=== PATIENT | female | born 1960 | race Caucasian/White ===

== ENCOUNTER 2025-07-23 02:24 | Emergency (ER) | payer MEDICARE, SELFPAY ==
[2025-07-23] VITALS (80 sets, daily range): BP systolic 138–183; BP diastolic 73–117; PULSE 65–89; RESP 8–26; TEMP 36.5–36.7; O2SAT 94–99
--- NOTE | 2025-07-23 02:15 | RT.EKG_ITS ---
APPROVED REPORT Exam: Resting ECG Reason for Exam: chest pain Patient Location: E HR:68 bpm ECG Measurements Heart Rate 68 AXIS DC 156 P 78 QRSd 97 QRS -29 QT 410 T 25 QTc 438 Conclusion Sinus rhythm...normal P axis, V-rate 60- 99 Physician: no stemi. no prior for comparison
--- NOTE | 2025-07-23 02:30 | DI.CT_ITS ---
Exam(s) CT CHEST PE CTA EXAM: CT CHEST PE CTA CLINICAL HISTORY: chest pain, sob, eval for PE. TECHNIQUE: Imaging Protocol: Axial CT angiography was performed with multi- slice acquisition and multi-planar reconstructions as well as axial, coronal and sagittal MIP reconstructions. Computer aided detection (CAD) was utilized. CONTRAST MATERIAL: Intravenous: Omnipaque 350 Contrast volume:60 ml COMPARISON: No exams were available for comparison FINDINGS: Exam is limited by mild respiratory motion. Pulmonary Arteries: No evidence of filling defect to suggest pulmonary emboli. Mediastinum and Micheline: No dominant adenopathy or fluid collection. Pulmonary parenchyma: Somewhat limited evaluation due to expiratory changes and mild respiratory motion. No consolidation or dominant measurable mass. Pleura: No effusion or pneumothorax. Heart: The left atrium and left ventricle are moderately dilated. There is a mitral valve prosthesis. No coronary artery calcifications are seen. Aorta: Thoracic aorta non-dilated. No dissection. Upper abdomen: No acute findings. Bones: Unremarkable sternal wires. Tubes, Catheters, and Lines: None Soft tissues: Unremarkable. IMPRESSION: No evidence of pulmonary embolism or other acute abnormality. The preliminary [facility] report was reviewed. RADIATION DOSE DELIVERED: 51.67mGy.cm Total DLP DATA REPOSITORY: All CT scans at this facility are submitted to the National Radiology Data Registry (NRDR) Dose Index Registry (DIR) with the [employer] (ACR). RADIATION OPTIMIZATION: All CT scans at this facility use at least one of these dose optimization techniques: automated exposure control; mA and/or kV adjustment per patient size (includes targeted exams where dose is matched to clinical indication); or iterative reconstruction.
--- NOTE | 2025-07-23 02:37 | W.ED.GENAD ---
Discharge Plan Disposition Patient Disposition: Home Condition: Good Discharge Details Clinical Impression: Chest discomfort Primary Care Provider: Elizabeth,Local ED Provider: Tyrone Barone Home Meds and New Rx's Prescriptions: No Action cyclobenzaprine 5 mg tablet 5 mg PO TID PRN Eliquis 5 mg tablet 5 mg PO BID losartan [Cozaar] 50 mg tablet 50 mg PO DAILY metoprolol succinate [Toprol XL] 50 mg tablet extended release 24 hr 50 mg PO DAILY levothyroxine [Euthyrox] 112 mcg tablet 112 mcg PO DAILY calcium carbonate-vitamin D3 500 mg-3.125 mcg (125 unit) tablet 1 tab PO DAILY hydrocodone-acetaminophen 7.5-325 mg tablet 0.5 tab PO TID PRN Rx Instructions: FOR MIGRAINES hydromorphone [Dilaudid] 2 mg tablet 1 mg PO DAILY PRN Rx Instructions: MIGRAINES sumatriptan succinate [Imitrex] 100 mg tablet 100 mg PO ONCE PRN Rx Instructions: FOR MIGRAINES. MAY TAKE ANOTHER X1 2HRS S/P 1ST IF NEEDED ondansetron 4 mg tablet,disintegrating 4 mg PO BID-TID PRN hydroxyzine HCl 25 mg tablet 25 mg PO DAILY PRN docusate sodium 250 mg capsule 250 mg PO DAILY ibuprofen [Advil Liqui-Gel] 200 mg capsule 600 mg PO Q8H PRN naproxen sodium [Aleve] 220 mg capsule 220 mg PO BID-TID PRN Discharge Instructions Instructions: Chest Pain (DC) Additional Instructions: At this time your workup is returned very reassuring. There is no evidence of pathology in your lungs, no aortic dissection, no signs of heart attack, no other significant abnormalities. Your repeat blood work is returned normal. Your EKG shows no signs of heart attack. 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 It would be reasonable to discuss having a nonemergent outpatient stress test when you get back to [place]. Please avoid any spicy foods, tomato-based products or mint based products. If you notice any worsening of your symptoms, or any new symptoms such as vomiting, diarrhea, fever, chills, shortness of breath, chest pain, numbness, weakness, or fainting , please return immediately to the emergency department for reevaluation. Please follow up with your primary care provider as soon as possible for reassessment and reevaluation. As always, it was a pleasure participating in your medical care today. HPI General Date/Time Provider Initiated Documentation: 07/23/25 02:35. HPI Narrative: This is a pleasant 65-year-old female who [place], with a past medical history of atrial fibrillation on Eliquis, stroke as a young adolescent, thyroid cancer and thyroidectomy, modified maze technique and mitral valve replacement at [facility] in [facility], open heart surgery for this procedure in December 2024, and chronic migraines. She presents today for chest pain. Patient states that the pain began at around 4:30 PM. She took Aleve but this did not improve her symptoms. Pain worsened throughout the night. She describes it as a squeezing sensation like someone is squeezing a sponge. No radiation to her arms neck head or shoulders. Minimal pleuritic pain associated with this. Pain is not necessarily worsened with exertion. She denies any vomiting or diarrhea. No trauma. No other complaints at this time. Related Data Home Medications ?Medication ?Instructions ?Recorded ?Confirmed apixaban 5 mg tablet (Eliquis) 5 mg PO BID 07/23/25 07/23/25 calcium 500 mg (as 1 tab PO DAILY 07/23/25 07/23/25 carbonate)-vitamin D3 3.125 mcg (125 unit) tablet cyclobenzaprine 5 mg tablet 5 mg PO TID PRN 07/23/25 07/23/25 docusate sodium 250 mg capsule 250 mg PO DAILY 07/23/25 07/23/25 hydrocodone 7.5 mg-acetaminophen 0.5 tab PO TID PRN 07/23/25 07/23/25 325 mg tablet hydromorphone 2 mg tablet 1 mg PO DAILY PRN 07/23/25 07/23/25 (Dilaudid) hydroxyzine HCl 25 mg tablet 25 mg PO DAILY PRN 07/23/25 07/23/25 ibuprofen 200 mg capsule (Advil 600 mg PO Q8H PRN 07/23/25 07/23/25 Liqui-Gel) levothyroxine 112 mcg tablet 112 mcg PO DAILY 07/23/25 07/23/25 (Euthyrox) losartan 50 mg tablet (Cozaar) 50 mg PO DAILY 07/23/25 07/23/25 metoprolol succinate 50 mg 50 mg PO DAILY 07/23/25 07/23/25 tablet,extended release 24 hr (Toprol XL) naproxen sodium 220 mg capsule 220 mg PO BID-TID PRN 07/23/25 07/23/25 (Aleve) ondansetron 4 mg disintegrating 4 mg PO BID-TID PRN 07/23/25 07/23/25 tablet sumatriptan succinate 100 mg 100 mg PO ONCE PRN 07/23/25 07/23/25 tablet (Imitrex) Allergies Allergy/AdvReac Type Severity Reaction Status Date / Time Sulfa (Sulfonamide Allergy Intermediate Skin Rash Verified 07/23/25 02:42 Antibiotics) General Stated Complaint: Chest Pain THEODORA: 2 Exam Narrative Exam Narrative: 1.Const: Well-nourished, Well-developed, appearing stated age 2.Eyes: PERRL, no conjunctival injection, and symmetrical lids. 3.ENT: Atraumatic external nose and ears. Moist MM. Neck: Symmetric, trachea midline, No thyromegaly. 4.CVS: +S1/S2, Peripheral pulses 2+ and equal in all extremities. Brisk capillary refill in all extremities. 5.RESP: Unlabored respiratory effort. Clear to auscultation bilaterally. No wheezes rales or rhonchi 6.GI: Soft, Nontender/Nondistended, No hepatosplenomegaly. No guarding or rebound. 7.MSK: Normocephalic/Atraumatic, Extremities w/o deformity or ttp No cyanosis or clubbing, Normal movement of all extremities 8.Skin: Warm, Dry. No rashes or lesions. 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 Sensation grossly intact, no focal neurologic deficits. 10.Psych: (AAO) x3. Appropriate mood and affect Course Vital Signs Vital signs: Vital Signs Temperature 36.7 C 07/23/25 02:29 Pulse 86 07/23/25 02:29 Respiratory Rate 15 07/23/25 02:29 Blood Pressure 117/117 H 07/23/25 02:29 Pulse Oximetry 98 07/23/25 02:29 Temperature 36.7 C 07/23/25 02:29 Temperature Source Oral 07/23/25 02:29 Pulse 86 07/23/25 02:29 Respiratory Rate 15 07/23/25 02:29 Blood Pressure 117/117 H 07/23/25 02:29 Blood Pressure Position Sitting 07/23/25 02:29 Pulse Oximetry 98 07/23/25 02:29 Oxygen Delivery Method Room Air 07/23/25 02:29 Oxygen Flow Rate 0 07/23/25 02:29 Pain Level 6 07/23/25 02:29 Medical Decision Making This is a pleasant 65-year-old female who is [place], with a past medical history of atrial fibrillation on Eliquis, stroke as a young adolescent, thyroid cancer and thyroidectomy, modified maze technique and mitral valve replacement at [facility] in [facility], open heart surgery for this procedure in December 2024, and chronic migraines. She presents today for chest pain. Patient states that the pain began at around 4:30 PM. She took Aleve but this did not improve her symptoms. Pain worsened throughout the night. She describes it as a squeezing sensation like someone is squeezing a sponge. No radiation to her arms neck head or shoulders. Minimal pleuritic pain associated with this. Pain is not necessarily worsened with exertion. She denies any vomiting or diarrhea. No trauma. No other complaints at this time. Exam demonstrates a stable appearing female, somewhat hypertensive, normal heart rate, pulses are intact in all extremities. No pitting edema in the lower extremities. No calf tenderness. Differential is broad but includes ACS, aortic pathology, PE, pneumonia, pneumothorax, GERD and musculoskeletal strain. Will evaluate for these etiologies, give aspirin, control her pain, give nitroglycerin, monitor closely and reassess. EKG shows no evidence of STEMI. 4:57 AM Patient's laboratory workup has returned, serial troponins are normal, EKG shows no evidence of STEMI or cardiac abnormality. CTA of the chest shows no dissection or PE. On reassessment patient has complete resolution of her symptoms. She feels well. At this point symptoms clinically inconsistent with acute life-threatening etiology. Suspect potential esophageal spasm, muscular spasm, or other ani-rkqt-yvcjwzccoya etiology at this stage based on current clinical assessment, laboratory results, and imaging results. Patient stable for discharge. Will recommend outpatient follow-up for stress testing on nonemergent basis when she returns home. Discussed red flags for which to return. I have extensively reviewed the treatment plan and discharge instructions with the patient and their family. I have addressed all patient concerns at this time. The patient and family was made aware of what symptoms to monitor for that would warrant a return to the emergency department. Discussed the plan with the patient and family, they demonstrate verbal understanding and agreement with our assessment and plan at this time. The documentation in this chart was dictated using [employer] dictation software. Please excuse any dictation errors. FINDINGS: Limitations: Mild motion artifact. Pulmonary arteries: No pulmonary embolus is appreciated. Aorta: No thoracic aortic aneurysm seen. Lungs: Dependent changes are present in the lungs. Pleural spaces: No pleural effusion. Heart: No pericardial effusion. Lymph nodes: Nonspecific mediastinal lymph nodes. Liver: Indeterminate hypodensities in the liver. Consider follow-up. Adrenal glands: Adrenal thickening. Bones/joints: No acute pertinent abnormality seen. Soft tissues: No acute pertinent abnormality seen. IMPRESSION: No acute findings to explain reported symptoms. Thank you for allowing us to participate in the care of your patient. Dictated and Authenticated by: Aminata Medrano MD 07/23/2025 4:08 AM Eastern Time ([place] & [place]) PFSH All Active Problems (Updated 07/23/25 @ 04:57 by Tyrone Barone DO) Chest discomfort (Acute) Social History Smoking/Tobacco Use Status: Former Tobacco Use Smoking risk assessment performed?: Yes Alcohol Intake: former Drug use: Never Substance use type: does not use Housing: house Do you feel safe at home: Yes Do you feel safe in your relationship?: Yes POCUS Exam (ED) Limited Cardiac Exam DATE OF EXAM: 07/23/25 TIME OF EXAM: 03:04 PROVIDER THAT PERFORMED THE STUDY: Tyrone Barone REASON FOR EXAM: Chest pain VISUALIZED STRUCTURES: Left atrium, Left ventricle, Right ventricle, Aortic valve and Mitral valve VIEW OBTAINED: Parasternal long-axis PERTINENT FINDINGS/IMPRESSION: No apparent abnormalities Exam complete
[2025-07-23 02:50] LABS: Abs Immature Grans 0.00 10^3/uL (0.0-0.06); HCT 40.0 % (36.0-46.0); HGB 13.6 g/dL (11.2-15.7); Immature Grans % 0.0 %; MCH 32.3 pg (27.0-33.0); MCHC 34.0 % (32.0-36.0); MCV 95 fL (80-95); MPV 9.8 fL (8.0-11.0); Platelet Count 306 10^3/uL (130-400); RBC 4.21 10^6/uL (3.93-5.22); RDW 12.0 % (11.7-14.6); RDW-SD 42.2 fL; WBC 6.15 10^3/uL (4.4-10.8)
[2025-07-23] MEDS: Aspirin 81 MG CHEW 324 MG CH (02:55)
[2025-07-23] MEDS: nitroGLYcerin 0.4 MG TAB SL (02:58)
[2025-07-23 03:00] LABS: INR 1.0 (0.9-1.1); PTT Activated 26.1 sec (20.6-30.2); Prothrombin Time 10.0 sec (9.1-11.1)
[2025-07-23 03:05] LABS: ALT 22 U/L (14-59); AST 16 U/L (15-37); Albumin 3.4 g/dL (3.4-5.0); Alkaline Phosphatase 101 U/L (46-116); Anion Gap 8.4 mmol/L (3-11); BUN 14 mg/dL (7-18); Bilirubin, Total 0.3 mg/dL (0.2-1.0); CO2 27.6 mmol/L (21.0-32.0); Calcium 9.1 mg/dL (8.5-10.1); Chloride 108 mmol/L (98-107); Estimated GFR 99.55 (mL/min/1.73m2); Glucose 120 mg/dL (74-106); Lipase 29 U/L (<78); Potassium 3.5 mmol/L (3.5-5.1); Sodium 144 mmol/L (136-145); Total Protein 6.6 g/dL (6.4-8.2); Troponin I 11 ng/L (<or=51)
[2025-07-23 03:23] LABS: NT-proBNP 361 pg/mL (<300)
[2025-07-23] MEDS: Omnipaque 350 MG/ML 100 ML BTL IJ (03:23)
[2025-07-23] MEDS: Normal Saline Flush 10 ML SYR IVP (03:24)
[2025-07-23] MEDS: Normal Saline - Diluent 50 ML VIAL IJ (03:24)
[2025-07-23 04:08] LABS: Troponin I 10 ng/L (<or=51)
--- NOTE | 2025-07-23 04:09 | DI.[facility]_ITS ---
PROCEDURE INFORMATION: Exam: CTA Chest With Contrast Exam date and time: 07/23/2025 3:26 AM Age: 65 years old Clinical indication: Shortness of breath; Other: Cp; Prior surgery; Surgery date: 6+ months; Surgery type: Open heart surgery in dec, thyroid CA thyroidectomy; Chest pain, SOB, eval for pe TECHNIQUE: Imaging protocol: Computed tomographic angiography of the chest with contrast. Exam focused on the arteries. 3D rendering (Not supervised by radiologist): MIP and/or 3D reconstructed images were created by the technologist. Radiation optimization: All CT scans at this facility use at least one of these dose optimization techniques: automated exposure control; mA and/or kV adjustment per patient size (includes targeted exams where dose is matched to clinical indication); or iterative reconstruction. Contrast material: OMNIPAQUE 350; Contrast volume: 60 ml; Contrast route: INTRAVENOUS (IV); COMPARISON: No relevant prior studies available. FINDINGS: Limitations: Mild motion artifact. Pulmonary arteries: No pulmonary embolus is appreciated. Aorta: No thoracic aortic aneurysm seen. Lungs: Dependent changes are present in the lungs. Pleural spaces: No pleural effusion. Heart: No pericardial effusion. Lymph nodes: Nonspecific mediastinal lymph nodes. Liver: Indeterminate hypodensities in the liver. Consider follow-up. Adrenal glands: Adrenal thickening. Bones/joints: No acute pertinent abnormality seen. Soft tissues: No acute pertinent abnormality seen. IMPRESSION: No acute findings to explain reported symptoms. Dictated and Authenticated by: Aminata Medrano MD. Orderin Abisai Hansen MD
== END 2025-07-23 05:39 | disposition home or self-care (01) ==
LOC: ER 05:37
PROVIDERS: Emergency Provider Student in an Organized Health Care Education/Training Program
DX: R07.89 Other chest pain (principal); Z79.01 Long term (current) use of anticoagulants; Z86.79 Personal history of other diseases of the circulatory system
CPT/HCPCS: 36415; 71275; 80053; 83690; 93005; 93308; 99285; 83880; 84484; 85025; 85610; 85730; 93010; 99284; J3490